=== PATIENT | male | born 1975 | race Caucasian/White ===

== ENCOUNTER 2018-07-31 12:39 | Outpatient (CLI) | payer OTHER, SELFPAY ==
--- NOTE | 2018-07-31 12:52 | DI.RAD_ITS ---
SYMPTOMS/DIAGNOSIS: COUGH, R05 CHEST X-RAY, PA AND LATERAL: No priors. The heart is normal in size. The lungs are clear. The mediastinal structures and pleura appear intact. IMPRESSION: Normal chest.
== END 2018-07-31 12:59 ==
PROVIDERS: PCP Nurse Practitioner; Visit Provider Nurse Practitioner
DX: R05 Cough (principal)
CPT/HCPCS: 71046

== ENCOUNTER 2018-08-13 02:45 | Outpatient (CLI) | payer OTHER, SELFPAY ==
--- NOTE | 2018-08-13 | PFT_ITS ---
PULMONARY FUNCTION TEST REPORT Patient identification - Nicho Lagunas DATE OF - 73 DATE OF SERVICE - 08/13/2018 REQUESTING PROVIDER Blossom Goodwin N.P. INTERPRETATION OF STUDY Spirometry shows no evidence of obstructive airways disease. No bronchodilator response. The pre-bronchodilator flow volume loop was suboptimal. LUNG VOLUMES - Lung volumes show no evidence of restriction. DIFFUSION CAPACITY- Elevated. AIRWAY RESISTANCE - Normal. IMPRESSION Isolated elevated diffusion capacity, this can be seen in asthma. If the diagnosis of asthma is in question, preceding with methacholine challenge testing may prove to be useful. Milvia Black M.D. [facility] [facility] - 08/20/2018
== END 2018-08-13 03:05 ==
PROVIDERS: PCP Nurse Practitioner; Visit Provider Nurse Practitioner
DX: R05 Cough (principal)

== ENCOUNTER 2021-05-30 18:42 | Outpatient (REF) | payer BC, SELFPAY ==
[2021-06-01 12:09] LABS: COVID-19 RT-PCR UVMMC Result Negative (Negative)
== END 2021-05-30 18:43 | disposition home or self-care (01) ==
LOC: LBN 18:42
PROVIDERS: PCP Nurse Practitioner; Visit Provider Physician Assistant Medical
DX: Z20.822 Contact with and (suspected) exposure to COVID-19 (principal)
CPT/HCPCS: U0003

== ENCOUNTER 2023-07-15 16:09 | Outpatient (REF) | payer BC, SELFPAY ==
[2023-07-15 18:41] LABS: Anion Gap 10.3 mmol/L (3-11); BUN 18 mg/dL (7-18); CO2 27.7 mmol/L (21.0-32.0); CREATININE 1.1 mg/dL (0.70-1.30); Calcium 9.5 mg/dL (8.5-10.1); Calculated LDL 160 mg/dL (<100); Chloride 104 mmol/L (98-107); Cholesterol 243 mg/dL (<200); Estimated GFR 82.81 (mL/min/1.73m2); Glucose 88 mg/dL (74-106); HDL Cholesterol 54 mg/dL (40-60); Potassium 4.1 mmol/L (3.5-5.1); Sodium 142 mmol/L (136-145); Triglyceride 148 mg/dL (<150)
[2023-07-16 18:24] LABS: PSA, Screening 0.3 ng/mL (<=2.5)
[2023-07-17 09:02] LABS: Hepatitis C Ab w Rflx HCV PCR Negative (Negative)
[2023-07-17 11:16] LABS: HIV-1/2 Ag & Ab Screen Negative (Negative)
== END 2023-07-15 16:10 | disposition home or self-care (01) ==
LOC: NCHCN 16:09
PROVIDERS: PCP Nurse Practitioner; Visit Provider Nurse Practitioner Family
DX: Z00.00 Encounter for general adult medical examination without abnormal findings (principal); J30.2 Other seasonal allergic rhinitis; R39.11 Hesitancy of micturition; Z13.220 Encounter for screening for lipoid disorders; Z13.228 Encounter for screening for other metabolic disorders; Z12.5 Encounter for screening for malignant neoplasm of prostate; Z11.59 Encounter for screening for other viral diseases; Z11.4 Encounter for screening for human immunodeficiency virus [HIV]
CPT/HCPCS: 80048; 80061; 84153; 86803; 87389

== ENCOUNTER 2023-11-07 07:14 | Day surgery (SDC) | payer BC, SELFPAY ==
--- NOTE | 2023-11-06 16:41 | PDOC.DSDIS_ITS ---
Date of service: 11/07/23 Time of Service: 09:03 Discharge Plan Disposition Patient Disposition: Home Condition: Good Discharge Details Reason For Visit: colon scope Attending Provider: Fanny Killian Primary Care Provider: PABLO KAUR Home Meds and New Rx's Prescriptions: Continued albuterol sulfate 90 mcg/actuation HFA aerosol inhaler 2 puff inhalation Q6H PRN epinephrine 0.3 mg/0.3 mL auto-injector 0.3 mg IM Q4H PRN Discontinued polyethylene glycol 3350 17 gram/dose powder 238 g PO ONCE Qty: 238 0RF Rx Instructions: take per colonoscopy instructions bisacodyl [Dulcolax (bisacodyl)] 5 mg tablet,delayed release (DR/EC) 5 mg PO ONCE Qty: 4 0RF Rx Instructions: take per colonoscopy instructions Discharge Instructions Additional Instructions: [facility] Colonoscopy Post- Op Instructions Instructions for Everyone who is given Anesthesia: For your safety, please do the following for the next twenty-four (24) hours: *Do Not operate a motor vehicle (car, truck, motorcycle, etc.) *Do Not drink alcoholic beverages or use any recreational drugs for the first 24 hours or while taking pain medications. The medications in your body may have a reaction that can be dangerous. *Do Not make any important decisions or sign any important papers. Findings: normal colon and rectum Follow up: Repeat in 10 years time 1. No lifting over 20 pounds or strenuous activity for the first 24 hours after your procedure. After 24 hours there are no restrictions on your activity but you may feel fatigued for a few days. 2. After you arrive home you may have a light meal and return to your normal diet as you can tolerate it without feeling sick to your stomach. 3. You may have a bloated, gaseous feeling in your belly (abdomen) after a colonoscopy. Passing gas and belching will help. Walking or lying down on your left side with your knees flexed may relieve the discomfort. Call the office at [phone] (Office) or [phone] (Hospital) right away if you notice any of the following: a.Vomiting of blood or ?coffee ground stools?. b.Rectal bleeding 1Tbsp, blood clots or continuous bleeding. c.Severe belly (abdominal) pain. d.A hard distended belly (abdomen) and an inability to pass gas. 4. Please don?t expect to have a normal BM (bowel movement) for 2-3 days after your procedure. 5. If there are questions regarding the findings of your procedure, please contact your doctor 6. If you are unable to contact your doctor with a problem, contact the hospital at [phone]. 7. Continue all your regular medications unless directed otherwise. I understand the above instructions and have no questions. Signature of Patient or Adult Escort Name of Responsible Adult Escort Signature of Nurse Date/Time Activity:: see above Diet:: see above Discharge Orders Discharge Orders: Discharge Order (Routine); Ordered 11/07/23 Ordered By: Fanny Killian DS: Diagnosis Discharge Diagnosis (1) Colon cancer screening: Status: Acute (2) Personal history of anaphylaxis: (3) Bee sting allergy: (4) Seasonal allergies: (5) Urinary hesitancy: (6) Asthma, mild intermittent: (7) Screening for malignant neoplasm of colon performed: Status: Acute Asessment and Plan: The patient is seen and examined after their colonoscopy.? The patient has been able to pass gas.? They are not having abdominal pain.? They have been able to tolerate liquids and a snack.? They do not have any nausea or vomiting.? They are not having any chest pain or shortness of breath.??? They are not having any rectal bleeding. Their vital signs have been stable-see nursing notes. We discussed findings during their colonoscopy, and any biopsies that were done/polyps that were removed. The patient will be sent a letter with any biopsy results, and when to repeat the colonoscopy.-see discharge instructions. Patient was given explicit instructions to follow-up regarding colonoscopy-refer to discharge instructions.? We reviewed resumption of medications. Patient verbalized understanding and discharged in stable and satisfactory condition- See nursing notes.
--- NOTE | 2023-11-06 16:41 | W.COLOREPORT ---
Date of service: 11/07/23 Time of Service: 09:04 Colonoscopy Report Date of procedure: 11/07/23 Pre-op diagnosis general: CRC screening Post-op diagnosis procedure note: same Surgeon: Fanny Killian Anesthesia Type: General:No Airway Estimated blood loss (mL): 0 Pathology: none sent Complications: None Disposition: same day Prep: Miralax/Dulcolax Procedure Description: After informed consent was obtained the patient was taken to the procedure room and placed in a left decubitous position. Monitors were applied and a time out was done. The patients name, date of , procedure, allergies to medications and metal in their body was reviewed. The patient was then sedated. Once sedated and comfortable a rectal exam was done. External exam was normal. Internal exam revealed a normal sphincter tone and no palpable masses. The prostate without masses. The scope was then introduced and retrofelexed. No internal hemorrhoids were identified. The scope was then advanced to the cecum without difficulty. The TI and appendiceal orifice were identified. The scope was then slowly retracted over 11 minutes back into the rectum. There are no polyps, AVMs, or diverticula visualized. The scope was removed and the patient was woken up and taken back to Same day surgery in stable condition. The patient tolerated the procedure well and there were no immediate complications. Follow up: The patient should follow up in 10 years unless they develop changes in bowel habits or other new gastrointestinal complaints. [place] Bowel Prep [place] Bowel Prep Right Colon: 3 Left Colon: 3 Transverse Colon: 3 Total Score: 9
[2023-11-07 07:45] VITALS: BP 130/97; PULSE 76; RESP 16; TEMP 36.5; O2SAT 98
[2023-11-07] MEDS: Lactated Ringers 1,000 ML 80 ML IV (07:49)
--- NOTE | 2023-11-07 08:26 | W.ANESPRE ---
General Info Date of Service Date Performed: 11/07/23 Height: 5 ft 7 in Weight: 77.8 kg Body Mass Index (BMI): 26.9 Surgical Procedure: Operation Date: 11/07/23 08:20 Proposed Procedure Side Surgeon casi Killian, DO Meds Allergies and Home Medications Allergies Allergy/AdvReac Type Severity Reaction Status Date / Time bee pollen Allergy Severe Anaphylaxis Verified 11/07/23 07:19 benzoin Allergy Severe Hives Verified 11/07/23 07:19 Penicillins AdvReac Intermediate Hives Verified 11/07/23 07:19 meperidine HCl [From Demerol] AdvReac Nausea Verified 11/07/23 07:19 Home Medication Medication Instructions Recorded albuterol sulfate 90 mcg/actuation 2 puff inhalation Q6H PRN 07/15/23 aerosol inhaler epinephrine 0.3 mg/0.3 mL 0.3 mg IM Q4H PRN 07/15/23 injection, auto-injector Current Visit Medications: Current Medications Generic Name Dose Route Start Last Admin Trade Name Freq PRN Reason Stop Dose Admin Hyoscyamine Sulfate 0.125 mg 11/07/23 02:53 Hyoscyamine 0.125 Mg Sl/Oral/Chew SL 12/07/23 02:52 DIRECTED PRN Ringer's Solution 1,000 mls @ 80 mls/hr 11/07/23 06:00 11/07/23 07:49 IV 12/06/23 23:59 80 mls/hr INFUSION RANDOLPH Administration IV Miscellaneous Supplies 1 each 11/07/23 06:00 Iv Access IV 12/06/23 23:59 DIRECTED RANDOLPH Ondansetron HCl 4 mg 11/07/23 02:53 Ondansetron 4 Mg/2 Ml Vial IVP 12/07/23 02:52 Q4H PRN PRN Nausea / Vomiting Sodium Chloride 0 ml 11/07/23 06:00 Normal Saline Flush 10 Ml Syr IV 12/06/23 23:59 PRN PRN Sodium Chloride 0 ml 11/07/23 06:00 Normal Saline 10 Ml Vial IJ 12/06/23 23:59 DIRECTED PRN Sterile Water 0 ml 11/07/23 06:00 Water,Injection,Sterile 10 Ml Vial IJ 12/06/23 23:59 DIRECTED PRN PFSH Active Problems Active Problems: Problem Status Onset Code Screening for malignant neoplasm of colon performed Z12.11 Colon cancer screening Z12.11 Medical History Medical History Bitten or stung by nonvenomous insect and other nonvenomous arthropods, initial encounter Asthma, mild intermittent Personal history of anaphylaxis Bee sting allergy Seasonal allergies Chest tightness asthma related Urinary hesitancy Surgical History Surgical History Repair, Tendon or Muscle right profundis Fracture, Open Treatment benedict's fracture (L) wrist Appendectomy Tobacco Smoking/Tobacco Use Status: Never Alcohol Alcohol Intake: current Alcohol intake frequency: a few times a week Substance Use Substance use: Never Substance use type: does not use Vital Signs and Lab Results Vital Signs Most Recent Vital Signs in EMR: Most Recent Vital Signs Temp Pulse Resp BP Pulse Ox 36.5 C 76 16 130/97 H 98 11/07/23 07:45 11/07/23 07:45 11/07/23 07:45 11/07/23 07:45 11/07/23 07:45 Lab Results Blood Type / Crossmatch: No Data to Display Complete Blood Count: No Data to Display Complete Metabolic Panel: No Data to Display Liver Function Panel: No Data to Display Coagulation Panel: No Data to Display Cardiac Panel: No Data to Display Arterial Blood Gas: No Data to Display Venous Blood Gas: No Data to Display Pancreas Panel: No Data to Display Thyroid Panel: No Data to Display Infectious Disease: No Data to Display Blood Cultures: No Data to Display Toxicology Panel: No Data to Display Anesthesia Assessment and Plan Anesthesia History Personal History: No History of Anesthesia Complications Family History: No Family History of Anesthesia Complications Exercise Tolerance Exercise Tolerance: Metabolic Equivalents>4 Pertinent Negatives Pertinent Negatives: No Symptoms of GERD Cardiac & Pulmonary Exam Cardiac Exam: Normal S1/S2 Heart Sounds Pulmonary Exam: Clear Bilateral Breath Sounds Implantable Cardiac Device Does patient have a Pacemaker or an ICD?: No Airway Exam Known Difficult Airway: No Mallampati Class: 2 Mouth Opening: Normal (> 3cm) Thyromental Distance: Greater than 3 cm Neck Range of Motion: Full ROM Neck Circumference: Normal Teeth Condition: Normal Dentition ASA Classification ASA Score: ASA 2 Emergency Case?: No NPO Status NPO Status: NPO Clears >2 hours, Solids >8 hours Anesthesia Plan Resuscitation Status: Full Code Anesthesia Technique: General Anesthesia Airway Planned: Natural Airway Monitors Used: Standard Monitors
[2023-11-07 08:27] VITALS: BMI 26.9
[2023-11-07 08:56] VITALS: BP 117/76; PULSE 66; RESP 16; TEMP 36.4; O2SAT 96
--- NOTE | 2023-11-07 09:08 | W.ANESPOSTOP ---
Postoperative Evaluation Date, Time and Location Date Performed: 11/07/23 Time Performed: 09:08 Patient Location: Day Surgery Unit Vital Signs Most Recent Imported Vital Signs: Most Recent Vital Signs Temp Pulse Resp BP Pulse Ox 36.4 C L 66 16 117/76 96 11/07/23 08:56 11/07/23 08:56 11/07/23 08:56 11/07/23 08:56 11/07/23 08:56 Pain Score Most Recent Pain Score: Most Recent Pain Score Pain Level 0 11/07/23 07:45 Assessment Mental Status: Awake (Alert & Oriented to Patient Baseline) Airway and Respiratory Function: Patent airway with normal (patient baseline) respiratory exam Cardiovascular Function: Hemodynamically Stable Hydration Status: Adequately Hydrated Nausea & Vomiting: No Nausea or Vomiting Pain: Pt. Denies Any Pain Peripheral Nerve Block: Patient did not receive a nerve block
[2023-11-07 09:28] VITALS: BP 127/93; PULSE 93; RESP 64; TEMP 36.3; O2SAT 96
== END 2023-11-07 09:43 | disposition home or self-care (01) ==
LOC: SUR 07:14
PROVIDERS: PCP Nurse Practitioner Family; Visit Provider Surgery
PROC: 0DJD8ZZ Inspection of Lower Intestinal Tract, Via Natural or Artificial Opening Endoscopic (ICD-10-PCS; CPT 45378; principal; 2023-11-07 08:15)
DX: Z12.11 Encounter for screening for malignant neoplasm of colon (principal); Z87.892 Personal history of anaphylaxis; Z91.030 Bee allergy status; J45.20 Mild intermittent asthma, uncomplicated
CPT/HCPCS: 45378; J2001; J2704